=== PATIENT | male | born 1965 | race Caucasian/White ===

== ENCOUNTER 2016-10-03 09:01 | Emergency (ER) | payer SELFPAY ==
[~2016-10-03] VITALS: Ht 182.9 cm; Wt 131.8 kg
[2016-10-03 09:12] LABS: BASOPHILS % (AUTO) 0 % (0-2); EOSINOPHILS # (AUTO) 0.2 10^3uL; EOSINOPHILS % (AUTO) 4 % (0-4); MEAN CORPUSCULAR HEMOGLOBIN 31.5 PG (26.0-34.0); MEAN CORPUSCULAR HGB CONC 36.3 g/dL (31.0-37.0); MEAN CORPUSCULAR VOLUME 87 FL (80-100); MEAN PLATELET VOLUME 11.8 FL (6.0-9.5); MONOCYTES # (AUTO) 0.4 X10^3; MONOCYTES % (AUTO) 6 % (3-11); NEUTROPHILS # (AUTO) 4.1 X10^3; NEUTROPHILS % (AUTO) 60 % (51-67); PLATELET COUNT 133 10^3uL (150-450); WHITE BLOOD COUNT 6.82 10^3uL (4.0-11.0)
[2016-10-03 09:19] LABS: ALBUMIN 4.4 g/dL (3.4-5.0); ALKALINE PHOSPHATASE 56 U/L (38-126); BUN/CREATININE RATIO 10 (10-20); TOTAL PROTEIN 8.2 g/dL (6.4-8.5)
--- NOTE | 2016-10-03 09:54 | NUR ---
PT UP TO BATHROOM WITH NO ASSIST.
[2016-10-03 10:02] VITALS: BP 143/86
--- NOTE | 2016-10-03 10:26 | NUR ---
REPORT GIVEN TO ELVA PILLAI RN
--- NOTE | 2016-10-03 10:29 | NUR ---
EMS IN ROOM TO TRANSFER PT
== END 2016-10-03 10:39 | disposition short-term general hospital (02) ==
LOC: EDUNIT# 09:01 → ED 09:02
DX: R07.9 Chest pain, unspecified (principal)
CPT/HCPCS: 36415; 71010; 80053; 84484; 85025; 93005; 93010; 99284; 99285

== ENCOUNTER → 2016-10-03 | Outpatient (CLI) | payer SELFPAY | LOC: EMS 08:50 | PROVIDERS: ATTEND Emergency Medicine | DX: R07.89 Other chest pain (principal); I10 Essential (primary) hypertension ==